=== PATIENT | male | born 1985 | race Caucasian/White ===

== ENCOUNTER 2019-05-06 12:13 | Emergency (ER) | payer MEDICARE, OTHER ==
[2019-05-06 12:28] VITALS: RESP 18
--- NOTE | 2019-05-06 13:09 | ED ---
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 No headache no blurry vision fevers chills nausea vomiting sweats no recent trauma. No other modifying factors this time. 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 MD Complaint: focal weakness - Related Data Home Medications Medication Instructions Recorded Confirmed Levothyroxine Sodium [Synthroid] 175 mcg PO DAILY 11/16/14 05/06/19 INSULIN LISPRO (humaLOG) [humaLOG] 4 units SQ AC-LUNCH 05/06/19 05/06/19 INSULIN LISPRO (humaLOG) [humaLOG] 6 units SQ BID 05/06/19 05/06/19 Insulin Glargine,Hum.rec.anlog 15 units SQ HS 05/06/19 05/06/19 [[place]alo Solostar] Previous Rx's Medication Instructions Recorded Magnesium 200 mg PO DAILY #15 tablet 05/06/19 Allergies Allergy/AdvReac Type Severity Reaction Status Date / Time No Known Allergies Allergy Verified 05/06/19 12:52 Review of Systems ROS Statement: Those systems with pertinent positive or pertinent negative responses have been documented in the HPI. ROS Other: All systems not noted in ROS Statement are negative. Past Medical History Past Medical History: Cancer, Diabetes Mellitus, Pneumonia, Thyroid Disorder Additional Past Medical History / Comment(s): Medulla blastoma at age 13. Hearing loss. Staph pneumonia s/t the flu. History of Any Multi-Drug Resistant Organisms: None Reported Past Surgical History: Ventriculoperitoneal Shunt Additional Past Surgical History / Comment(s): abd surgery, eye surgery, hx of brain cancer Past Psychological History: No Psychological Hx Reported Smoking Status: Never smoker Past Alcohol Use History: None Reported Past Drug Use History: None Reported - Past Family History Father Family Medical History: No Reported History Mother Family Medical History: COPD Additional Family Medical History / Comment(s): Borderline diabetic. General Exam - General Exam Comments Initial Comments: This is a well-developed well-nourished awake alert oriented 3 male Limitations: no limitations General appearance: alert, in no apparent distress Head exam: Present: atraumatic, normocephalic, normal inspection Eye exam: Present: normal appearance, PERRL, EOMI. Absent: scleral icterus, conjunctival injection, periorbital swelling ENT exam: Present: normal exam, mucous membranes moist Neck exam: Present: normal inspection. Absent: tenderness, meningismus, lymphadenopathy Respiratory exam: Present: normal lung sounds bilaterally. Absent: respiratory distress, wheezes, rales, rhonchi, stridor Cardiovascular Exam: Present: regular rate, normal rhythm, normal heart sounds. Absent: systolic murmur, diastolic murmur, rubs, gallop, clicks GI/Abdominal exam: Present: soft, normal bowel sounds. Absent: distended, tenderness, guarding, rebound, rigid Extremities exam: Present: normal inspection, full ROM, normal capillary refill. 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 The patient states he has some diminished strength.) Psychiatric exam: Present: normal affect, normal mood Skin exam: Present: warm, dry, intact, normal color. Absent: rash Course Vital Signs 05/06/19 12:24 Temperature 98.3 F Pulse Rate 63 Respiratory 18 Rate Blood Pressure 123/80 O2 Sat by Pulse 100 Oximetry Medical Decision Making - Medical Decision Making Reexamination patient reveals essentially no change except for he does seem to have increased strength the right leg this is after IV hydration and magnesium. Patient will be discharge is able amulet without any difficulty has no further symptoms. - Lab Data Result diagrams: 05/06/19 12:59 05/06/19 12:59 Lab Results 05/06/19 05/06/19 05/06/19 Range/Units 12:59 12:59 12:59 WBC 4.0 (3.8-10.6) k/uL RBC 4.71 (4.30-5.90) m/uL Hgb 13.3 (13.0-17.5) gm/dL Hct 41.1 (39.0-53.0) % MCV 87.2 (80.0-100.0) fL MCH 28.2 (25.0-35.0) pg MCHC 32.3 (31.0-37.0) g/dL RDW 14.6 (11.5-15.5) % Plt Count 175 (150-450) k/uL Neutrophils % 58 % Lymphocytes % 26 % Monocytes % 7 % Eosinophils % 6 % Basophils % 1 % Neutrophils # 2.3 (1.3-7.7) k/uL Lymphocytes # 1.1 (1.0-4.8) k/uL Monocytes # 0.3 (0-1.0) k/uL Eosinophils # 0.2 (0-0.7) k/uL Basophils # 0.0 (0-0.2) k/uL Sodium 139 (137-145) mmol/L Potassium 5.0 (3.5-5.1) mmol/L Chloride 104 (98-107) mmol/L Carbon Dioxide 27 (22-30) mmol/L Anion Gap 8 mmol/L BUN 22 H (9-20) mg/dL Creatinine 0.77 (0.66-1.25) mg/dL Est GFR (CKD-EPI)AfAm >90 (>60 ml/min/1.73 sqM) Est GFR (CKD-EPI)NonAf >90 (>60 ml/min/1.73 sqM) Glucose 206 H (74-99) mg/dL Calcium 9.4 (8.4-10.2) mg/dL Magnesium 1.5 L (1.6-2.3) mg/dL Total Bilirubin 0.7 (0.2-1.3) mg/dL AST 37 (17-59) U/L ALT 33 (21-72) U/L Alkaline Phosphatase 80 (38-126) U/L Creatine Kinase 74 (55-170) U/L Troponin I <0.012 (0.000-0.034) ng/mL Total Protein 7.6 (6.3-8.2) g/dL Albumin 4.5 (3.5-5.0) g/dL TSH 0.031 L (0.465-4.680) mIU/L Free T4 1.81 (0.78-2.19) ng/dL Urine Color Urine Appearance (Clear) Urine pH (5.0-8.0) Ur Specific [place] (1.001-1.035) Urine Protein (Negative) Urine Glucose (UA) (Negative) Urine Ketones (Negative) Urine Blood (Negative) Urine Nitrite (Negative) Urine Bilirubin (Negative) Urine Urobilinogen (<2.0) mg/dL Ur Leukocyte Esterase (Negative) 05/06/19 Range/Units 13:30 WBC (3.8-10.6) k/uL RBC (4.30-5.90) m/uL Hgb (13.0-17.5) gm/dL Hct (39.0-53.0) % MCV (80.0-100.0) fL MCH (25.0-35.0) pg MCHC (31.0-37.0) g/dL RDW (11.5-15.5) % Plt Count (150-450) k/uL Neutrophils % % Lymphocytes % % Monocytes % % Eosinophils % % Basophils % % Neutrophils # (1.3-7.7) k/uL Lymphocytes # (1.0-4.8) k/uL Monocytes # (0-1.0) k/uL Eosinophils # (0-0.7) k/uL Basophils # (0-0.2) k/uL Sodium (137-145) mmol/L Potassium (3.5-5.1) mmol/L Chloride (98-107) mmol/L Carbon Dioxide (22-30) mmol/L Anion Gap mmol/L BUN (9-20) mg/dL Creatinine (0.66-1.25) mg/dL Est GFR (CKD-EPI)AfAm (>60 ml/min/1.73 sqM) Est GFR (CKD-EPI)NonAf (>60 ml/min/1.73 sqM) Glucose (74-99) mg/dL Calcium (8.4-10.2) mg/dL Magnesium (1.6-2.3) mg/dL Total Bilirubin (0.2-1.3) mg/dL AST (17-59) U/L ALT (21-72) U/L Alkaline Phosphatase (38-126) U/L Creatine Kinase (55-170) U/L Troponin I (0.000-0.034) ng/mL Total Protein (6.3-8.2) g/dL Albumin (3.5-5.0) g/dL TSH (0.465-4.680) mIU/L Free T4 (0.78-2.19) ng/dL Urine Color Light Yellow Urine Appearance Clear (Clear) Urine pH 5.0 (5.0-8.0) Ur Specific [place] 1.011 (1.001-1.035) Urine Protein Negative (Negative) Urine Glucose (UA) 2+ H (Negative) Urine Ketones Negative (Negative) Urine Blood Negative (Negative) Urine Nitrite Negative (Negative) Urine Bilirubin Negative (Negative) Urine Urobilinogen <2.0 (<2.0) mg/dL Ur Leukocyte Esterase Negative (Negative) - EKG Data -: EKG Interpreted by [place] EKG shows normal: [place] [address] QRS duration 90 QT since QTC 34/[address] configuration) - Radiology Data Radiology results: report reviewed (Review the imaging and report shows no evidence of acute findings.), image reviewed Disposition Clinical Impression: Dehydration, Hypomagnesemia syndrome, Weakness Disposition: HOME SELF-CARE Condition: Good Instructions (If sedation given, give patient instructions): Dehydration (ED), Hypomagnesemia (ED) Prescriptions: Magnesium 200 mg PO DAILY #15 tablet Is patient prescribed a controlled substance at d/c from ED?: No Referrals: Aditya Hallman MD [Primary Care Provider] - 1-2 days
[2019-05-06 13:16] LABS: Basophils % (A) 1 %; Eosinophils # (A) 0.2 k/uL (0-0.7); Eosinophils % (A) 6 %; HCT 41.1 % (39.0-53.0); HGB 13.3 gm/dL (13.0-17.5); Lymphocytes # (A) 1.1 k/uL (1.0-4.8); Lymphocytes % (A) 26 %; MCH 28.2 pg (25.0-35.0); MCHC 32.3 g/dL (31.0-37.0); MCV 87.2 fL (80.0-100.0); Mean Platelet Volume 7.9; Monocytes # (A) 0.3 k/uL (0-1.0); Monocytes % (A) 7 %; Neutrophils # (A) 2.3 k/uL (1.3-7.7); Neutrophils % (A) 58 %; Platelet Count 175 k/uL (150-450); RBC 4.71 m/uL (4.30-5.90); RDW 14.6 % (11.5-15.5)
[2019-05-06 13:19] LABS: ALT 33 U/L (21-72); AST 37 U/L (17-59); African American GFR (CKD) >90 (>60 ml/min/1.73 sqM); Albumin 4.5 g/dL (3.5-5.0); Alkaline Phosphatase 80 U/L (38-126); Anion Gap 8 mmol/L; Blood Urea Nitrogen 22 mg/dL (9-20); Calcium 9.4 mg/dL (8.4-10.2); Carbon Dioxide 27 mmol/L (22-30); Chloride 104 mmol/L (98-107); Creatine Kinase 74 U/L (55-170); Glucose 206 mg/dL (74-99); Magnesium 1.5 mg/dL (1.6-2.3); Sodium 139 mmol/L (137-145); Total Bilirubin 0.7 mg/dL (0.2-1.3); Total Protein 7.6 g/dL (6.3-8.2)
[2019-05-06 13:37] LABS: Appearance,Urine Clear (Clear); Bilirubin,Urine Negative (Negative); Blood,Urine Negative (Negative); Color,Urine Light Yellow; Glucose,Urine (UA) 2+ (Negative); Ketones,Urine Negative (Negative); Leukocyte Esterase,Urine Negative (Negative); Nitrite,Urine Negative (Negative); Protein,Urine Negative (Negative); Specific Gravity,Urine 1.011 (1.001-1.035); Urobilinogen,Urine <2.0 mg/dL (<2.0)
--- NOTE | 2019-05-06 13:56 | CT ---
EXAMINATION TYPE: CT brain wo con DATE OF EXAM: 05/06/2019 COMPARISON: Previous study dated 02/22/2015. HISTORY: Right arm and right leg weakness CT DLP: 876.4 mGycm Automated exposure control for dose reduction was used. FINDINGS: There is been a previous craniotomy in the posterior fossa. There is been a previous nabila hole in the right frontal region. There is a ventriculoperitoneal drain via a left frontal approach. Its tip is in the frontal horn of the right lateral ventricle. There is encephalomalacia adjacent to the shunt t ract. There is been previous surgery on the fourth ventricle and cerebellum. There is an encephalomalacia i n this region. I understand the patient had a medulloblastoma. There is no acute focal lesion, mass effect or midline shift. I do not see evidence of intracranial b lood. Visualized portions of the paranasal sinuses and mastoids are clear. IMPRESSION: 1. NO ACUTE INTRACRANIAL ABNORMALITY. 2. POSTSURGICAL CHANGE. 3. NORMAL VENTRICULAR SIZE.
--- NOTE | 2019-05-06 13:59 | XR ---
EXAMINATION TYPE: XR chest 2V DATE OF EXAM: 05/06/2019 HISTORY: cough. REFERENCE: Previous study dated 02/22/2015. FINDINGS: Is a PHOTOGRAPHY INTERN shunt catheter projecting over the left side of the chest. The lungs are clear. Pleural space are clear. The heart is not enlarged. IMPRESSION: NO ACUTE CARDIOPULMONARY ABNORMALITY.
[2019-05-06] MEDS ORDERED: MAGNESIUM SULFATE-D5W PMX 1 GM in DEXTROSE/WATER 1 100ML.BAG IVPB ONE (14:10)
[2019-05-06] MEDS ORDERED: SODIUM CHLORIDE 0.9% 500 ML 500 ML IV STA (14:11)
[2019-05-06 14:40] LABS: T4, Free (Free Thyroxine) 1.81 ng/dL (0.78-2.19)
--- NOTE | 2019-05-06 14:43 | CT ---
EXAMINATION TYPE: CT angio head neck DATE OF EXAM: 05/06/2019 HISTORY: Right arm and right leg weakness. COMPARISON: CT brain earlier today CT DLP: 407.2 mGycm. Automated Exposure Control for Dose Reduction was Utilized. TECHNIQUE: CTA scan of the head and neck are performed with IV Contrast, patient injected with 50 mL of Isovue 370, axial images are obtained, coronal and sagittal reformatted images are reviewed. Thre e-D reconstructed images are created on an independent workstation and reviewed. FINDINGS: Carotid/Vascular Structures: There is normal three-vessel origin from aortic arch. There is no signif icant plaque or stenosis in common or internal carotid arteries bilaterally including at the level of carotid bulbs. There is a patent external carotid arteries without significant plaque or stenosis. There is dominant left vertebral artery. Vertebral arteries are patent to the basilar junction. There is a patent left posterior communicating artery. There is hypoplastic right posterior communicating artery. There is patent anterior communicating artery. There is no significant focal stenosis or aneu rysmal change in the anterior circulation. Other: Low occipital craniectomy changes are redemonstrated with adjacent area of encephalomalacia. L eft-sided SPRING TIER shunt catheter again seen. IMPRESSION: 1. No significant stenosis in common or internal carotid arteries bilaterally. 2. No significant stenosis or aneurysmal change at level of the [place].
[2019-05-06 16:04] VITALS: BP 118/64; PULSE 66; TEMP 98
[2019-05-07 09:34] LABS: Hemoglobin A1C 8.6 % (4.0-6.0)
== END 2019-05-06 16:05 | disposition home or self-care (01) ==
LOC: EC 12:13
DX: E83.42 Hypomagnesemia (principal); E86.0 Dehydration; R53.1 Weakness; E11.9 Type 2 diabetes mellitus without complications; E07.9 Disorder of thyroid, unspecified; Z79.890 Hormone replacement therapy; Z79.4 Long term (current) use of insulin; Z98.2 Presence of cerebrospinal fluid drainage device; Z85.841 Personal history of malignant neoplasm of brain; Z92.21 Personal history of antineoplastic chemotherapy; Z92.3 Personal history of irradiation
CPT/HCPCS: 36415; 93005; 84439; 80053; 84443; 82550; 83735; 84484; 85025; 81003; 83036; 71046; 70496; 70450; 70498; 99285; 96365; J3475; Q9967

== ENCOUNTER 2020-09-28 15:06 | Emergency (ER) | payer MEDICARE, OTHER ==
[2020-09-28 15:19] VITALS: RESP 18
[2020-09-28 16:25] LABS: HCT 39.3 % (39.0-53.0); HGB 13.1 gm/dL (13.0-17.5); MCHC 33.4 g/dL (31.0-37.0); MCV 92.8 fL (80.0-100.0); Platelet Count 203 k/uL (150-450); RBC 4.23 m/uL (4.30-5.90); RDW 13.8 % (11.5-15.5); WBC 8.1 k/uL (3.8-10.6)
[2020-09-28 16:30] LABS: African American GFR (CKD) >90 (>60 ml/min/1.73 sqM); Anion Gap 5 mmol/L; Blood Urea Nitrogen 23 mg/dL (9-20); Calcium 9.4 mg/dL (8.4-10.2); Carbon Dioxide 30 mmol/L (22-30); Chloride 101 mmol/L (98-107); Glucose 299 mg/dL (74-99); Non-African American GFR(CKD) >90 (>60 ml/min/1.73 sqM); Potassium 4.3 mmol/L (3.5-5.1); Sodium 136 mmol/L (137-145)
[2020-09-28 16:31] LABS: Prothrombin Time 10.1 sec (9.0-12.0)
--- NOTE | 2020-09-28 16:33 | CT ---
EXAMINATION TYPE: CT brain wo con DATE OF EXAM: 09/28/2020 COMPARISON: 05/06/2019 HISTORY: Dizziness, LT leg numbness. CT DLP: 1068.4 mGycm Automated exposure control for dose reduction was used. There is old occipital craniotomy defect. There is hypodensity in the medial aspect of both cerebella r hemispheres consistent with encephalomalacia. There is no mass effect nor midline shift. There is n o evidence of intracranial hemorrhage. There is left side ventricular shunt catheter with the tip in the frontal horn right lateral ventricle. There is 2.5 cm rounded area of hypodensity around the cath eter in the left posterior frontal lobe. Lateral and third ventricles have normal size. There is some white matter hypodensity measuring 3 x 2 cm right posterior parietal lobe. Skull base is intact. The re is normal aeration of the mastoid sinuses. IMPRESSION: Encephalomalacia in the posterior fossa as above in the medial aspect of the cerebellar hemispheres u nchanged. Encephalomalacia around the shunt catheter left posterior frontal lobe unchanged. Encephalo malacia right posterior parietal lobe probably due to previous catheter unchanged. No acute intracran ial abnormality.
--- NOTE | 2020-09-28 16:35 | XR ---
EXAMINATION TYPE: XR skull limited DATE OF EXAM: 09/28/2020 COMPARISON: NONE HISTORY: Dizziness. Shunt TECHNIQUE: 2 views FINDINGS: There is left side ventriculoperitoneal shunt catheter. Catheter appears continuous. There is old occipital craniotomy defect. Sella turcica appears normal. IMPRESSION: Shunt catheter appears intact.
--- NOTE | 2020-09-28 16:36 | XR ---
EXAMINATION TYPE: XR soft tissue neck DATE OF EXAM: 09/28/2020 COMPARISON: NONE HISTORY: Dizziness TECHNIQUE: 2 views FINDINGS: Epiglottis appears normal. Prevertebral soft tissues appear normal. Cervical vertebra have normal alignment. There is ventricular shunt catheter that appears intact. Subglottic trachea appears normal. IMPRESSION: Negative cervical soft tissue exam. Left-sided shunt catheter noted.
--- NOTE | 2020-09-28 16:39 | XR ---
EXAMINATION TYPE: XR chest 1V DATE OF EXAM: 09/28/2020 COMPARISON: 05/06/2019 HISTORY: Shunt catheter TECHNIQUE: FINDINGS: Heart and mediastinum are normal. Lungs are clear. Diaphragm is normal. There is left-sided ventriculoperitoneal shunt catheter noted that appears continuous. IMPRESSION: Catheter appears intact. No active cardiopulmonary disease. No change. Lower end of the c atheter appears beyond the L2 level.
--- NOTE | 2020-09-28 16:40 | XR ---
EXAMINATION TYPE: XR abdomen 1V DATE OF EXAM: 09/28/2020 COMPARISON: NONE HISTORY: Dizziness TECHNIQUE: 2 views upright FINDINGS: There is ventriculoperitoneal shunt catheter with the tip looped in the pelvis. Catheter ap pears continuous. Bowel gas pattern is normal. There is no sign of intestinal obstruction or pneumope ritoneum. Fecal pattern is normal. There are no pathologic calcifications. IMPRESSION: Nonacute abdomen. Catheter appears intact.
[2020-09-28 17:17] LABS: Eosinophils # (M) 2.43 k/uL (0-0.7); Monocytes # (M) 0.24 k/uL (0-1.0); Neutrophils # (M) 3.73 k/uL (1.3-7.7); Neutrophils % (M) 46 %; Nucleated Red Blood Cells 0 /100 WBC (0-0); Total Cells Counted 100
[2020-09-28 17:38] VITALS: BP 121/91; PULSE 72; TEMP 98
--- NOTE | 2020-09-28 17:40 | ED ---
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 The patient states that the symptoms been going on since he had a glucose monitoring device placed. This was about one week ago.He describes the dizziness as a spinning sensation. States it's worse with closing his eyes and states that it's also worse with certain movements. He states that the left leg tingling seems to occur with the dizziness. He denies any headaches. No vision changes. He denies any focal weakness in arm or leg. No lower back discomfort. Denies any sciatic-type discomfort. The patient denies any recent head trauma. He was concerned about his shunt so he came to the emergency department. - Related Data Home Medications Medication Instructions Recorded Confirmed Levothyroxine Sodium [Synthroid] 175 mcg PO DAILY 11/16/14 05/06/19 INSULIN LISPRO (humaLOG) [humaLOG] 4 units SQ AC-LUNCH 05/06/19 05/06/19 INSULIN LISPRO (humaLOG) [humaLOG] 6 units SQ BID 05/06/19 05/06/19 Insulin Glargine,Hum.rec.anlog 15 units SQ HS 05/06/19 05/06/19 [Fide Su] Previous Rx's Medication Instructions Recorded Magnesium 200 mg PO DAILY #15 tablet 05/06/19 Meclizine [Antivert] 25 mg PO TID PRN #15 tab 09/28/20 Allergies Allergy/AdvReac Type Severity Reaction Status Date / Time No Known Allergies Allergy Verified 09/28/20 15:19 Review of Systems ROS Statement: Those systems with pertinent positive or pertinent negative responses have been documented in the HPI. ROS Other: All systems not noted in ROS Statement are negative. Past Medical History Past Medical History: Cancer, Diabetes Mellitus, Pneumonia, Thyroid Disorder Additional Past Medical History / Comment(s): Medulla blastoma at age 13. Hearing loss. Staph pneumonia s/t the flu. History of Any Multi-Drug Resistant Organisms: None Reported Past Surgical History: Ventriculoperitoneal Shunt Additional Past Surgical History / Comment(s): abd surgery, eye surgery, hx of brain cancer Past Psychological History: No Psychological Hx Reported Smoking Status: Never smoker Past Alcohol Use History: None Reported Past Drug Use History: None Reported - Past Family History Father Family Medical History: No Reported History Mother Family Medical History: COPD Additional Family Medical History / Comment(s): Borderline diabetic. General Exam - General Exam Comments Initial Comments: Constitutional: [Awake alert] [Appears comfortable] Head: [Normocephalic atraumatic] shunt reservoir is firm but compressible Eyes: [no conjunctival injection] [No scleral icterus] [EOMI]pupils are 3 mm and reactive bilaterally Neck: [No JVD] [Supple] Heart: [Regular rate rhythm] [normal S1-S2] [no murmurs] Lungs: [Clear to auscultation bilaterally] [No wheezing] [No rales] Abdomen: [Soft] [nondistended] [nontender] Extremities: [Non edematous] [DP pulses intact] [Radial pulses intact] Neuro: [A&Ox3] cranial nerves 2 through 12 are grossly intact, 5 out of 5 strength in upper and lower extremities bilaterally, 2 out of 4 patellar reflexes. 5 out of 5 strength with dorsiflexion and plantar flexion of the bilateral ankle. Psych: [Appropriate mood and affect] Limitations: no limitations Course Vital Signs 09/28/20 09/28/20 15:16 17:30 Temperature 98.5 F 98.0 F Pulse Rate 94 72 Respiratory 18 18 Rate Blood Pressure 130/85 121/91 O2 Sat by Pulse 96 97 Oximetry EKG Findings - EKG Comments: EKG Findings:: EKG interpreted at 1555 showing normal sinus rhythm with a rate of 71. No abnormal ST segment changes or T-wave inversion. QTC is 3-6. Other intervals normal. No ectopy. Medical Decision Making - Medical Decision Making his is a 35-year-old male who presents emergency department for dizziness and left leg tingling. The patient had no focal neurologic findings on examination. CT of the head did not reveal any changes. Blood work was reviewed and also unremarkable. EKG unremarkable. The patient remained a symptom back while emergency department. I did give him a perception for Antivert for possible vertigo. He is to follow-up with his neurologist, Dr. Jackson Can return if he has any worsening or changing symptoms. All questions were answered. - Lab Data Result diagrams: 09/28/20 16:06 09/28/20 16:06 Lab Results 09/28/20 09/28/20 09/28/20 Range/Units 16:06 16:06 16:06 WBC 8.1 (3.8-10.6) k/uL RBC 4.23 L (4.30-5.90) m/uL Hgb 13.1 (13.0-17.5) gm/dL Hct 39.3 (39.0-53.0) % MCV 92.8 (80.0-100.0) fL MCH 31.0 (25.0-35.0) pg MCHC 33.4 (31.0-37.0) g/dL RDW 13.8 (11.5-15.5) % Plt Count 203 (150-450) k/uL Neutrophils % (Manual) 46 % Lymphocytes % (Manual) 21 % Monocytes % (Manual) 3 % Eosinophils % (Manual) 30 % Neutrophils # (Manual) 3.73 (1.3-7.7) k/uL Lymphocytes # (Manual) 1.70 (1.0-4.8) k/uL Monocytes # (Manual) 0.24 (0-1.0) k/uL Eosinophils # (Manual) 2.43 H (0-0.7) k/uL Nucleated RBCs 0 (0-0) /100 WBC Manual Slide Review Performed PT 10.1 (9.0-12.0) sec INR 1.0 (<1.2) APTT 23.0 (22.0-30.0) sec Sodium 136 L (137-145) mmol/L Potassium 4.3 (3.5-5.1) mmol/L Chloride 101 (98-107) mmol/L Carbon Dioxide 30 (22-30) mmol/L Anion Gap 5 mmol/L BUN 23 H (9-20) mg/dL Creatinine 1.01 (0.66-1.25) mg/dL Est GFR (CKD-EPI)AfAm >90 (>60 ml/min/1.73 sqM) Est GFR (CKD-EPI)NonAf >90 (>60 ml/min/1.73 sqM) Glucose 299 H (74-99) mg/dL Calcium 9.4 (8.4-10.2) mg/dL Disposition Clinical Impression: Vertigo Disposition: HOME SELF-CARE Condition: Stable Instructions (If sedation given, give patient instructions): Dizziness (ED) Prescriptions: Meclizine [Antivert] 25 mg PO TID PRN #15 tab PRN Reason: Vertigo Is patient prescribed a controlled substance at d/c from ED?: No Referrals: Alberto Potter DO [Primary Care Provider] - 1-2 days
== END 2020-09-28 17:53 | disposition home or self-care (01) ==
LOC: EC 15:06
DX: R42 Dizziness and giddiness (principal); R20.2 Paresthesia of skin; E11.9 Type 2 diabetes mellitus without complications; E07.9 Disorder of thyroid, unspecified; Z79.890 Hormone replacement therapy; Z79.4 Long term (current) use of insulin; Z85.841 Personal history of malignant neoplasm of brain; Z98.2 Presence of cerebrospinal fluid drainage device; Z98.890 Other specified postprocedural states
CPT/HCPCS: 36415; 70250; 70360; 70450; 71045; 74018; 80048; 85025; 85610; 85730; 93005; 99284

== ENCOUNTER → 2020-11-06 | Outpatient (CLI) | payer MEDICARE, OTHER | END | disposition home or self-care (01) | LOC: RADMRIMAIN 08:13 | PROVIDERS: ATTEND Psychiatry & Neurology Neurology | DX: Z53.9 Procedure and treatment not carried out, unspecified reason (principal) ==

== ENCOUNTER → 2020-11-25 | Outpatient (CLI) | payer MEDICARE, OTHER ==
--- NOTE | 2020-11-25 16:21 | MR ---
EXAMINATION TYPE: MR brain wo/w con DATE OF EXAM: 11/25/2020 COMPARISON: CT brain September 28, 2020 HISTORY: Dizziness, duane weakness, Hx of medulla blastoma, hx of shunt placement TECHNIQUE: Multiplanar, multisequence images of the brain and brainstem is performed without and with IV contras t, utilizing 7 mL intravenous Gadavist . FINDINGS: Diffusion weighted images demonstrate no evidence of a recent infarct or other diffusion ab normality. Artifact from high left frontal ventricular drainage catheter terminating near level of fo [place] of [place] is redemonstrated. There is artifact from an abandoned catheter fragment right parieta l region scalp soft tissue axial image 22 redemonstrated . Posterior craniectomy defect with adjacent encephalomalacia involving the central cerebellum is redemonstrated. The ventricular system and cist ernal spaces are stable in size. Old area of encephalomalacia right parietal lobe axial image 19 is r edemonstrated. Midline structures demonstrate hypointense areas through the corpus callosum possible areas of old in farct related to crossing shunt catheters. The craniocervical junction appears within normal limits. Post contrast images demonstrate no areas of suspicious enhancement. The dural venous sinuses appea r patent. The visualized sinuses are clear and the globes are intact. IMPRESSION: Extensive postsurgical changes redemonstrated. No new suspicious enhancing mass identifie d.
== END | disposition home or self-care (01) ==
LOC: RADMRIMAIN 15:00
PROVIDERS: ATTEND Psychiatry & Neurology Neurology
DX: Z98.890 Other specified postprocedural states (principal); R26.0 Ataxic gait; Z85.841 Personal history of malignant neoplasm of brain; Z98.2 Presence of cerebrospinal fluid drainage device
CPT/HCPCS: 70553; A9585

== ENCOUNTER 2024-10-05 08:47 | Emergency (ER) | payer MEDICARE, OTHER ==
[2024-10-05 08:54] LABS: Glucose,Whole Blood 113 mg/dL (70-110)
--- NOTE | 2024-10-05 09:13 | ED ---
General Adult HPI - General Chief complaint: Neuro Symptoms/Deficit Stated complaint: Possible stroke Time Seen by Provider: 10/05/24 09:00 Source: patient, RN notes reviewed, old records reviewed Mode of arrival: wheelchair - History of Present Illness Initial comments: This is a 39-year-old male who presents to the emergency department complaints of facial droop and slurred speech. Patient was last seen normal yesterday at 5 AM. Patient states he had a brain tumor when he was 13 years old. Patient comes in today stating that he did not feel good yesterday and his mother noted that he was dropping things but he occasionally will drop things but mom states it was more consistent yesterday. Mom states she also noticed slight slurred speech and facial droop yesterday but did not think much of this. Today it was much more significant. Patient denies any fever chills. Patient denies any chest pain difficulty breathing or shortness of breath. - Related Data Home Medications Medication Instructions Recorded Confirmed Cinnamon Bark [Cinnamon] 500 mg PO DAILY 10/05/24 10/05/24 INSULIN LISPRO (For Pump) [humaLOG 0.01 units SQ-PUMP CONTINUOUS 10/05/24 10/05/24 (For Pump)] Levothyroxine Sodium 137 mcg PO DAILY 10/05/24 10/05/24 Multivitamins, Thera [Multivitamin 1 tab PO DAILY 10/05/24 10/05/24 (formulary)] Neuropathy Med (Unknown) 1 tab PO DAILY 10/05/24 10/05/24 Allergies Allergy/AdvReac Type Severity Reaction Status Date / Time No Known Allergies Allergy Verified 10/05/24 09:39 Review of Systems ROS Statement: Those systems with pertinent positive or pertinent negative responses have been documented in the HPI. ROS Other: All systems not noted in ROS Statement are negative. Past Medical History Past Medical History: Cancer, Diabetes Mellitus, Pneumonia, Thyroid Disorder Additional Past Medical History / Comment(s): Medulla blastoma at age 13. Hearing loss. Staph pneumonia s/t the flu. History of Any Multi-Drug Resistant Organisms: None Reported Past Surgical History: Ventriculoperitoneal Shunt Additional Past Surgical History / Comment(s): abd surgery, eye surgery, hx of brain cancer Past Psychological History: No Psychological Hx Reported Smoking Status: Never smoker Past Alcohol Use History: None Reported Past Drug Use History: None Reported - Past Family History Father Family Medical History: No Reported History Mother Family Medical History: COPD Additional Family Medical History / Comment(s): Borderline diabetic. General Exam - General Exam Comments Initial Comments: GENERAL: Patient is well-developed and well-nourished. Patient is nontoxic and well- hydrated and is in no mild distress. ENT: Neck is soft and supple. No significant lymphadenopathy is noted. Oropharynx is clear. Moist mucous membranes. Neck has full range of motion without tricia citing any pain. EYES: The sclera were anicteric and conjunctiva were pink and moist. Extraocular movements were intact and pupils were equal round and reactive to light. Eyelids were unremarkable. PULMONARY: Unlabored respirations. Good breath sounds bilaterally. No audible rales rhonchi or wheezing was noted. CARDIOVASCULAR: There is a regular rate and rhythm without any murmurs gallops or rubs. ABDOMEN: Soft and nontender with normal bowel sounds. SKIN: Skin is clear with no lesions or rashes and otherwise unremarkable. NEUROLOGIC: Patient is alert and oriented x3. Patient has significant slurred speech as well as right-sided facial droop which does appear to somewhat involve the forehead. MUSCULOSKELETAL: Normal extremities with adequate strength and full range of motion. LYMPHATICS: No significant lymphadenopathy is noted PSYCHIATRIC: Normal psychiatric evaluation. Course Vital Signs 10/05/24 10/05/24 10/05/24 08:51 09:18 09:22 Temperature 98.4 F 98.1 F 98.1 F Pulse Rate 107 H 98 99 Respiratory 20 16 16 Rate Blood Pressure 133/88 121/83 O2 Sat by Pulse 97 95 96 Oximetry 10/05/24 10/05/24 09:37 09:52 Temperature 98.4 F 97.4 F L Pulse Rate 94 90 Respiratory 16 16 Rate Blood Pressure 125/80 126/86 O2 Sat by Pulse 94 L 96 Oximetry Medical Decision Making - Medical Decision Making EKG is interpreted by myself. EKG shows a sinus tachycardia at 104 bpm RI 152 QRS is 80 QT interval 303 QTc is 364. Patient's EKG shows no ST segment ovation or depression Was pt. sent in by a medical professional or institution (, PA, MIXOLOGIST, urgent care, hospital, or usp...) When possible be specific @ -No Did you speak to anyone other than the patient for history (EMS, parent, family, police, friend...)? What history was obtained from this source @ -No Did you review nursing and triage notes (agree or disagree)? Why? @ -I reviewed and agree with nursing and triage notes Were old charts reviewed (outside hosp., previous admission, EMS record, old EKG, old radiological studies, urgent care reports/EKG's, usp records)? Report findings @ -No old charts were reviewed Differential Diagnosis? @ -Differential CVA Ischemic stroke, hemorrhagic stroke, brain tumor, atypical migraine, Wernicke's encephalopathy, seizure, multiple sclerosis, meningitis, encephalitis, hypoglycemia, Guillain-Griffin, electrolytes disturbance, myasthenia gravis.... This is not meant to be an all-inclusive list EKG interpreted by me (3pts min.). @ -As above X-rays interpreted by me (1pt min.). @ -None done CT interpreted by me (1pt min.). @ -CT of the brain shows a questionable petechial hemorrhage in the basal ga nglia on the left. CT angiogram shows no acute abnormality. U/S interpreted by me (1pt. min.). @ -None done What testing was considered but not performed or refused? (CT, X-rays, U/S, labs)? Why? @ -None What meds were considered but not given or refused? Why? @ -None Did you discuss the management of the patient with other professionals (professionals i.e. , PA, MIXOLOGIST, lab, RT, psych nurse, social media strategist, statement request clerk, teacher, special loan officer, manager rn case)? Give summary @ -I spoke with Dr. Nath the radiologist about the results and I spoke with Dr. Rosario the neurointerventionist on 2 occasions and he will accept the patient in [place] Was smoking cessation discussed for >3mins.? @ -No Was critical care preformed (if so, how long)? @ -No Were there social determinants of health that impacted care today? How? (Homelessness, low income, unemployed, alcoholism, drug addiction, transportation, low edu. Level, literacy, decrease access to med. care, penitentiary, rehab)? @ -No Was there de-escalation of care discussed even if they declined (Discuss DNR or withdrawal of care, Hospice)? DNR status @ -No What co-morbidities impacted this encounter? (DM, HTN, Smoking, COPD, CAD, Cancer, CVA, ARF, Chemo, Hep., AIDS, mental health diagnosis, sleep apnea, morbid obesity)? @ -None Was patient admitted / discharged? Hospital course, mention meds given and route, prescriptions, significant lab abnormalities, going to OR and other pertinent info. @ -Patient remained stable while in the emergency department he continued to have facial droop and slurred speech. Patient will be sent to [facility] where Dr. Rosario will care for the patient Undiagnosed new problem with uncertain prognosis? @ -No Drug Therapy requiring intensive monitoring for toxicity (Heparin, Nitro, Insulin, Cardizem)? @ -No Were any procedures done? @ -No Diagnosis/symptom? @ -Basal ganglia hemorrhage Acute, or Chronic, or Acute on Chronic? @ -Acute Uncomplicated (without systemic symptoms) or Complicated (systemic symptoms)? @ -Complicated Side effects of treatment? @ -No Exacerbation, Progression, or Severe Exacerbation? @ -No Poses a threat to life or bodily function? How? (Chest pain, USA, SD, pneumonia, PE, COPD, DKA, ARF, appy, cholecystitis, CVA, Diverticulitis, Homicidal, Suicidal, threat to staff... and all critical care pts) @ -Yes this could worsen and cause a CVA or - Lab Data Result diagrams: 10/05/24 09:14 10/05/24 09:14 Lab Results 10/05/24 10/05/24 10/05/24 Range/Units 08:53 09:14 09:14 WBC 6.3 (3.8-10.6) k/uL RBC 4.75 (4.30-5.90) m/uL Hgb 13.3 (13.0-17.5) gm/dL Hct 40.3 (39.0-53.0) % MCV 84.8 (80.0-100.0) fL MCH 28.1 (25.0-35.0) pg MCHC 33.1 (31.0-37.0) g/dL RDW 13.5 (11.5-15.5) % Plt Count 246 (150-450) k/uL MPV 8.4 Neutrophils % 62 % Lymphocytes % 24 % Monocytes % 6 % Eosinophils % 5 % Basophils % 1 % Neutrophils # 3.9 (1.3-7.7) k/uL Lymphocytes # 1.5 (1.0-4.8) k/uL Monocytes # 0.4 (0-1.0) k/uL Eosinophils # 0.3 (0-0.7) k/uL Basophils # 0.0 (0-0.2) k/uL PT 10.3 (10.0-12.5) sec INR 0.9 (<1.2) APTT 23.3 (22.0-30.0) sec Sodium (137-145) mmol/L Potassium (3.5-5.1) mmol/L Chloride (98-107) mmol/L Carbon Dioxide (22-30) mmol/L Anion Gap mmol/L BUN (9-20) mg/dL Creatinine (0.66-1.25) mg/dL Est GFR (CKD-EPI)AfAm (>60 ml/min/1.73 sqM) Est GFR (CKD-EPI)NonAf (>60 ml/min/1.73 sqM) Glucose (74-99) mg/dL POC Glucose (mg/dL) 113 H (70-110) mg/dL POC Glu Playground Worker ID [place] Calcium (8.4-10.2) mg/dL Total Bilirubin (0.2-1.3) mg/dL AST (17-59) U/L ALT (4-49) U/L Alkaline Phosphatase (38-126) U/L Creatine Kinase (55-170) U/L Troponin I (0.000-0.034) ng/mL Total Protein (6.3-8.2) g/dL Albumin (3.5-5.0) g/dL 10/05/24 10/05/24 Range/Units 09:14 09:14 WBC (3.8-10.6) k/uL RBC (4.30-5.90) m/uL Hgb (13.0-17.5) gm/dL Hct (39.0-53.0) % MCV (80.0-100.0) fL MCH (25.0-35.0) pg MCHC (31.0-37.0) g/dL RDW (11.5-15.5) % Plt Count (150-450) k/uL MPV Neutrophils % % Lymphocytes % % Monocytes % % Eosinophils % % Basophils % % Neutrophils # (1.3-7.7) k/uL Lymphocytes # (1.0-4.8) k/uL Monocytes # (0-1.0) k/uL Eosinophils # (0-0.7) k/uL Basophils # (0-0.2) k/uL PT (10.0-12.5) sec INR (<1.2) APTT (22.0-30.0) sec Sodium 143 (137-145) mmol/L Potassium 4.1 (3.5-5.1) mmol/L Chloride 106 (98-107) mmol/L Carbon Dioxide 27 (22-30) mmol/L Anion Gap 10 mmol/L BUN 20 (9-20) mg/dL Creatinine 0.83 (0.66-1.25) mg/dL Est GFR (CKD-EPI)AfAm >90 (>60 ml/min/1.73 sqM) Est GFR (CKD-EPI)NonAf >90 (>60 ml/min/1.73 sqM) Glucose 116 H (74-99) mg/dL POC Glucose (mg/dL) (70-110) mg/dL POC Glu Playground Worker ID Calcium 9.2 (8.4-10.2) mg/dL Total Bilirubin 0.4 (0.2-1.3) mg/dL AST 25 (17-59) U/L ALT 29 (4-49) U/L Alkaline Phosphatase 103 (38-126) U/L Creatine Kinase 57 (55-170) U/L Troponin I <0.012 (0.000-0.034) ng/mL Total Protein 7.2 (6.3-8.2) g/dL Albumin 4.2 (3.5-5.0) g/dL Disposition Clinical Impression: Hemorrhagic stroke Disposition: OTHER INSTITUTION NOT DEFINED Referrals: Alberto Potter DO [Primary Care Provider] - 1-2 days Time of Disposition: 10:27 - Out of Hospital Transfer - Req. Specs Out of Hospital Transfer - Requested Specifics: Other Emergency Center ([facility])
[2024-10-05 09:23] LABS: Basophils % (A) 1 %; Eosinophils # (A) 0.3 k/uL (0-0.7); Eosinophils % (A) 5 %; HCT 40.3 % (39.0-53.0); HGB 13.3 gm/dL (13.0-17.5); Lymphocytes # (A) 1.5 k/uL (1.0-4.8); Lymphocytes % (A) 24 %; MCH 28.1 pg (25.0-35.0); MCHC 33.1 g/dL (31.0-37.0); MCV 84.8 fL (80.0-100.0); Mean Platelet Volume 8.4; Monocytes # (A) 0.4 k/uL (0-1.0); Monocytes % (A) 6 %; Neutrophils # (A) 3.9 k/uL (1.3-7.7); Neutrophils % (A) 62 %; Platelet Count 246 k/uL (150-450); RBC 4.75 m/uL (4.30-5.90); RDW 13.5 % (11.5-15.5); WBC 6.3 k/uL (3.8-10.6)
[2024-10-05] MEDS: SODIUM CHLORIDE 0.9% 500 ML 500 ML IV STA (09:31)
[2024-10-05 09:33] LABS: INR 0.9 (<1.2); Partial Thromboplastin Time 23.3 sec (22.0-30.0); Prothrombin Time 10.3 sec (10.0-12.5)
--- NOTE | 2024-10-05 09:40 | CT ---
EXAMINATION TYPE: CT brain wo con DATE OF EXAM: 10/05/2024 9:22 AM COMPARISON: 09/28/2020 CLINICAL INDICATION: Male, 39 years old with history of Neuro deficit, acute, stroke suspected, slurr ed speech, history of medulla blastoma right facial droop TECHNIQUE: CT of the brain is performed utilizing 3 mm thick sections through the posterior fossa and 3 mm thick sections through the remaining calvarium. Study is performed within 24 hours of arrival to the hospital. Contrast used: mL of , (none if empty) CT DLP: 1618.1 mGycm, Automated exposure control for dose reduction was used. FINDINGS: There is some hyperdensity within the left basal ganglion which is an interval change. Some hyperdens ity may be within the left thalamus. These are interval changes. Small petechial hemorrhages could be considered. Follow-up is recommended. No mass lesion is evident. Surgical changes in the posterior fossa. Recurrent mass in the infratento rial region not identified. No acute infarcts are evident. Periventricular white matter hypodensity is present. This is stable fr om comparison. Ventricles and sulci are appropriate for the patient age. Mucosal thickening with thickening in the left maxillary sinus. Remaining paranasal sinuses and masto id air cells are aerated. Postcraniotomy defect in the lower occipital region is evident. There is a shunt catheter entering on the left frontal region into the midline. IMPRESSION: 1. New mild increase density within the left basal ganglia and left thalamus. Petechial hemorrhages could be considered. This could correlate with patient's symptoms. Developing physiologic basal gang lion calcification is within the differential. Follow-up recommended. Report was called emergency allan m by Dr. Nath by telephone at the time of interpretation. [facility], , 10/05/2024 9:37 AM
[2024-10-05 09:58] LABS: ALT 29 U/L (4-49); AST 25 U/L (17-59); African American GFR (CKD) >90 (>60 ml/min/1.73 sqM); Albumin 4.2 g/dL (3.5-5.0); Alkaline Phosphatase 103 U/L (38-126); Anion Gap 10 mmol/L; Blood Urea Nitrogen 20 mg/dL (9-20); Calcium 9.2 mg/dL (8.4-10.2); Carbon Dioxide 27 mmol/L (22-30); Chloride 106 mmol/L (98-107); Creatine Kinase 57 U/L (55-170); Glucose 116 mg/dL (74-99); Non-African American GFR(CKD) >90 (>60 ml/min/1.73 sqM); Potassium 4.1 mmol/L (3.5-5.1); Sodium 143 mmol/L (137-145); Total Bilirubin 0.4 mg/dL (0.2-1.3); Total Protein 7.2 g/dL (6.3-8.2)
--- NOTE | 2024-10-05 10:04 | CT ---
EXAMINATION TYPE: CT angio head neck DATE OF EXAM: 10/05/2024 9:45 AM COMPARISON: None. CLINICAL INDICATION: Male, 39 years old with history of Neuro deficit, acute, stroke suspected, slurr ed speech, history of medulla blastoma TECHNIQUE: CTA scan is performed with axial images are obtained, coronal and sagittal reformatted nakia ges are reviewed. 3-D reconstructed images are created on an independent workstation and reviewed. [facility] images are reviewed. NASCET criteria was used in interpretation of this exam? Contrast used:65 mL of Isovue 370 with IV Contrast, (none if empty) Oral contrast used: (none if empty) CT DLP: 12092 mGycm, Automated exposure control for dose reduction was used. FINDINGS: Carotid/Vascular Structures: There is a 3 vessel arch. Common carotid arteries bifurcate into internal and external carotid arteries without significant erica w limiting stenosis. Right vertebral artery is not visualized proximal course. This is visualized distally. Left vertebral artery appears dominant. Internal carotid arteries and vertebral arteries are patent to the skull base. Cervical of [place]: Vertebral basilar system appears normal. Posterior cerebral vasculature is unrema rkable. Internal carotid arteries bifurcate normally into A1 and M1 segments. A2 segments are normal. The anterior communicating artery is patent. The right posterior communicating artery is absent. The left posterior communicating artery is patent. Other: No suspicious intracranial. IMPRESSION: 1. No flow-limiting stenosis bilateral carotid bifurcations. 2. Proximal right vertebral artery not identified. This does have contrast distally. Consider subclav isela steal with retrograde flow. Left vertebral artery is dominant. 3. Normal [place] [facility], , 10/05/2024 10:01 AM
--- NOTE | 2024-10-05 10:04 | XR ---
EXAMINATION TYPE: XR chest 2V DATE OF EXAM: 10/05/2024 9:49 AM COMPARISON: Chest radiographs from 09/28/2020 CLINICAL INDICATION: Male, 39 years old with history of altered mental status; [facility] TECHNIQUE: XR chest 2V Frontal and lateral views of the chest. FINDINGS: Lungs/Pleura: There is no evidence of pleural effusion, focal consolidation, or pneumothorax. Pulmonary vascularity: Unremarkable. Heart/mediastinum: Cardiomediastinal silhouette is unremarkable. Musculoskeletal: No acute osseous pathology. Other findings: None Lines/Tubes: Ventriculoperitoneal shunt tubing noted along the right aspect of the radiograph. IMPRESSION: No acute cardiopulmonary disease/process. [facility], , 10/05/2024 10:02 AM
[2024-10-05 10:47] VITALS: RESP 18
[2024-10-05 11:58] VITALS: BP 121/88; PULSE 85; TEMP 98.3
== END 2024-10-05 11:57 | disposition other institution (70) ==
LOC: EC 08:47
DX: I61.0 Nontraumatic intracerebral hemorrhage in hemisphere, subcortical (principal); R00.0 Tachycardia, unspecified
CPT/HCPCS: 36415; 93005; 80053; 82550; 84484; 85025; 85610; 85730; 71046; 70496; 70450; 70498; 99285; Q9967

== ENCOUNTER → 2024-11-12 | Outpatient (CLI) | payer MEDICARE, OTHER ==
--- NOTE | 2024-11-12 09:00 | CT ---
EXAMINATION TYPE: CT brain wo con DATE OF EXAM: 11/12/2024 COMPARISON: 10/05/2024 CLINICAL INDICATION: Male, 39 years old with history of I61.8 OTHER NONTRAUMATIC INTRACEREBRAL HEMORR KEM; [facility], f/u recent stroke. CT DLP: 1147 mGycm Automated exposure control for dose reduction was used. FINDINGS: SERVICES MANAGER shunt catheter is noted tip of the catheter stable. There is mild generalized degenerative change. Areas of hyperdensity involving the left basal gallop ganglion thalamus are stable. No midline shift. Remote ischemic change involving the cerebellum. Postsurgical change of the calvari um. Changes of chronic sinusitis. Intracranial atherosclerotic disease. IMPRESSION: STABLE AREAS OF INCREASED DENSITY INVOLVING THE LEFT BASAL GANGLIA AND THALAMUS WHICH COULD BE RELATE D TO HEMORRHAGE. CALCIFICATION ALSO IN THE DIFFERENTIAL DIAGNOSIS RECOMMEND FOLLOW-UP MRI. [facility], , 11/12/2024 8:58 AM
== END | disposition home or self-care (01) ==
LOC: RADCTMAIN 08:14
PROVIDERS: ATTEND Neurological Surgery
DX: I61.8 Other nontraumatic intracerebral hemorrhage (principal); Z86.73 Personal history of transient ischemic attack (TIA), and cerebral infarction without residual deficits
CPT/HCPCS: 70450